=== PATIENT | female | born 1980 | race Two or more races ===

== ENCOUNTER 2016-09-08 10:38 | Inpatient (IN) | payer MEDICAID ==
[~2016-09-08] VITALS: Ht 162.6 cm; Wt 117.9 kg
[2016-09-08 11:10] LABS: BASOPHILS % (AUTO) 0.2 % (0.0-2.0); EOSINOPHILS % (AUTO) 0.1 % (0.0-6.0); HEMATOCRIT 38 % (33-45); HEMOGLOBIN 12.4 g/dL (11.5-14.8); LYMPHOCYTES # (AUTO) 0.7 /CMM (0.8-4.8); LYMPHOCYTES % (AUTO) 13.3 % (20.0-44.0); MEAN CORPUSCULAR HEMOGLOBIN 27 PG (26.0-33.0); MEAN CORPUSCULAR HGB CONC 32 g/dl (31.0-36.0); MEAN CORPUSCULAR VOLUME 83 fL (82-100); MONOCYTES # (AUTO) 0.2 /CMM (0.1-1.30); MONOCYTES % (AUTO) 3.5 % (2.0-12.0); NEUTROPHILS # (AUTO) 4.3 /CMM (1.8-8.9); NEUTROPHILS % (AUTO) 82.9 % (43.0-81.0); PLATELET COUNT (AUTO) 311 /CMM (150-450); RDW COEFFICIENT OF VARIATION 15.7 (11.5-15.0); RED BLOOD CELL COUNT(AUTO) 4.62 MIL/uL (4.0-5.2); WHITE BLOOD COUNT (AUTO) 5.3 K/uL (4.3-11.0)
[2016-09-08 11:21] LABS: CALCIUM, SERUM 8.6 mg/dL (8.5-10.1); CREATININE 3.1 mg/dL (0.6-1.3); POTASSIUM 3.2 mmol/L (3.5-5.1)
[2016-09-08] MEDS ORDERED: IV NS 0.9% 1,000 ML ONE (11:22)
[2016-09-08] MEDS ORDERED: IV SET PRIMARY 1 EA INFUS.SET MC ONE (11:22)
[2016-09-08 11:23] LABS: INR 1.11 (0.87-1.13); PROTHROMBIN TIME 11.6 SECS (9.5-12.7)
[2016-09-08 11:26] LABS: ALBUMIN 4.5 g/dL (3.4-5.0); BILIRUBIN,TOTAL 0.2 mg/dL (0.2-1.0); TOTAL PROTEIN, SERUM 8.3 g/dL (6.4-8.2)
[2016-09-08] MEDS ORDERED: IV NS 0.9% 1,000 ML BAG IV ONE (11:30)
[2016-09-08] MEDS ORDERED: CHLORDIAZEPOXIDE HCL 25 MG CAPSULE PO ONE (11:30)
--- NOTE | 2016-09-08 11:30 | NUR ---
Pt BIB [facility] C/O mid-epigastric abd pain with N/V today. Pt also states she is going through "alcohol withdrawal". Pt appears sleepy but easily arousable. A/Ox1. Resp even unlabored. Skin warm nondiaphoretic. No neuro deficits noted. No tremor or sz activity noted. In ER bed 09 on monitor.
[2016-09-08 11:57] LABS: ALCOHOL, BLOOD < 3 mg/dL (0-0)
[2016-09-08 12:00] LABS: THYROID STIMULATING HORMONE 0.861 uIU/mL (0.358-3.74)
[2016-09-08 12:05] LABS: LACTIC ACID 1.6 mmol/L (0.4-2.0)
--- NOTE | 2016-09-08 12:13 | NUR ---
pt transported to CT in stable condition
[2016-09-08] MEDS ORDERED: LORAZEPAM INJ 2 MG/ML VIAL ONE (12:56)
[2016-09-08] MEDS ORDERED: LORAZEPAM INJ 2 MG/ML VIAL IV ONE (13:00)
--- NOTE | 2016-09-08 13:01 | NUR ---
PAGED DR TURNER
[2016-09-08] MEDS ORDERED: TEMA30CA PO (13:08)
[2016-09-08] MEDS ORDERED: LORA1TAB82 PO (13:08)
[2016-09-08] MEDS ORDERED: LITH300T3 PO (13:08)
[2016-09-08] MEDS ORDERED: LITH600C PO (13:08)
[2016-09-08] MEDS ORDERED: ONDANSETRON HCL/PF 4 MG/2 ML VIAL ONE (13:28)
[2016-09-08] MEDS ORDERED: POTASSIUM CHLORIDE 20 MEQ TAB.PRT.SR PO ONE ×2 (13:28→13:30)
--- NOTE | 2016-09-08 13:32 | NUR ---
REPAGED DR JOHNNY SANTANA
--- NOTE | 2016-09-08 13:33 | NUR ---
PATIENT ASSIGNED TO TELE 312-2 DX ACUTE RENAL FAILURE.
[2016-09-08] MEDS ORDERED: CHLORDIAZEPOXIDE HCL 25 MG CAPSULE ONE (13:46)
[2016-09-08] MEDS ORDERED: CHLORDIAZEPOXIDE HCL 25 MG CAPSULE PO STA (13:47)
[2016-09-08] MEDS ORDERED: ONDANSETRON HCL/PF 4 MG/2 ML VIAL IV STA (13:47)
--- NOTE | 2016-09-08 14:14 | NUR ---
report given to Salina RN for admission
[2016-09-08 14:27] LABS: APPEARANCE,URINE Slightly Cloudy (CLEAR); BILIRUBIN,URINE Negative (NEGATIVE); BLOOD, URINE Trace-intact Ery/uL (NEGATIVE); COLOR,URINE Yellow (YELLOW); KETONES,URINE 15 (NEGATIVE); LEUKOCYTE ESTERASE ,URINE Negative (NEGATIVE); NITRITE, URINE Negative (NEGATIVE); PROTEIN,URINE 100 mg/dl (NEGATIVE); UGLUCOSE Negative (NEGATIVE); UROBILINOGEN,URINE 0.2 EU/dL (0.2)
[2016-09-08 14:29] LABS: PREGNANCY TEST URINE QUAL NEGATIVE (NEGATIVE)
[2016-09-08 14:38] LABS: ADD URINE CULTURE NO; BACTERIA,URINE None seen /HPF (None Seen); CANNABINOID, URINE NEGATIVE (NEGATIVE); PHENCYCLIDINE SCREEN,URINE NEGATIVE (NEGATIVE); RBC,URINE 0-2 /HPF (0-2); SQUAMOUS EPITHELIAL CELL,UR Few /HPF (None Seen); WBC,URINE 0-2 /HPF (0-3)
--- NOTE | 2016-09-08 14:50 | NUR ---
PT TRANSPORTED TO [facility] IN STABLE CONDITION VIA ACLS PROTOCOL. NAD NOTED. PT MUCH MORE ALERT, EASILY AROUSABLE, MORE ORIENTED THAN ON INITIAL PRESENTATION. A/OX4 NOW.
--- NOTE | 2016-09-08 15:10 | NUR ---
ms rn received a new admission from er, 36 year old female, came in w/ alcohol intoxication/arf, awake,alert,oriented x3,not in any form of distress, respiration even and unlabored,no sob noted, lungs are clear,abdomen soft,positive bowel sounds,denies pain at this time. all needs attended.
--- NOTE | 2016-09-08 16:00 | NUR ---
ms rn called dr. rodas for orders w/ orders made and carried out.
[2016-09-08] MEDS ORDERED: IV NS 0.9% 1,000 ML IV PRN (17:30)
[2016-09-08] MEDS ORDERED: ACETAMINOPHEN 325 MG TABLET PO PRN (17:30)
[2016-09-08] MEDS ORDERED: HYDROCODONE/APAP 5/325MG 1 EACH TABLET PO PRN (17:30)
[2016-09-08] MEDS ORDERED: LORAZEPAM 1 MG TABLET PO SCH (17:30)
[2016-09-08] MEDS ORDERED: IV SET PRIMARY PUMP SET 1 EA INFUS.SET MC ONE (18:33)
--- NOTE | 2016-09-08 19:01 | NUR ---
ms rn on bed, no distress noted.
[2016-09-08] MEDS: LORAZEPAM 1 MG TABLET PO PRN (19:31)
--- NOTE | 2016-09-08 19:35 | NUR ---
RN NOTES COMPLAINED OF FEELING ANXIOUS FROM ALCOHOL WITHDRAWAL- ATIVAN 1MG PO GIVEN ORDERED, V/S STABLE
[2016-09-08 20:00] VITALS: BP 137/65
--- NOTE | 2016-09-08 20:48 | NUR ---
RN NOTES SPOKE TO DR. TURNER AND AND GOT AN ORDER OF [id number] PO PRN AND IMODIUM 2MG PO PRN FOR DIARRHEA, ORDER NOTED AND CARRIED OUT
[2016-09-08] MEDS ORDERED: LOPERAMIDE HCL (2 MG CAP) 2 MG CAPSULE PO PRN (21:00)
[2016-09-08] MEDS: TEMAZEPAM 15 MG CAPSULE PO PRN (21:29)
--- NOTE | 2016-09-08 21:30 | NUR ---
RN NOTES COMPLAINED OF HAVING DIARRHEA- IMODIUM 2MG PO GIVEN ORDERED, ASKED FOR SLEEPING PILL- REESTORIL 30MG PO GIVEN ORDERED, V/S STABLE
[2016-09-09 06:12] LABS: BASOPHILS % (AUTO) 0.8 % (0.0-2.0); HEMATOCRIT 33 % (33-45); HEMOGLOBIN 10.9 g/dL (11.5-14.8); LYMPHOCYTES # (AUTO) 2.4 /CMM (0.8-4.8); MEAN CORPUSCULAR HEMOGLOBIN 28 PG (26.0-33.0); MEAN CORPUSCULAR HGB CONC 33 g/dl (31.0-36.0); MEAN CORPUSCULAR VOLUME 83 fL (82-100); MONOCYTES # (AUTO) 0.3 /CMM (0.1-1.30); MONOCYTES % (AUTO) 6.7 % (2.0-12.0); NEUTROPHILS % (AUTO) 42.5 % (43.0-81.0); PLATELET COUNT (AUTO) 266 /CMM (150-450); RDW COEFFICIENT OF VARIATION 16.2 (11.5-15.0); RED BLOOD CELL COUNT(AUTO) 3.97 MIL/uL (4.0-5.2); WHITE BLOOD COUNT (AUTO) 4.8 K/uL (4.3-11.0)
--- NOTE | 2016-09-09 06:26 | NUR ---
RN NOTES COMPLAINED OF ABDOMINAL PAIN- NORCO 5/325 MG PO GIVEN ORDERED, V/S STABLE
--- NOTE | 2016-09-09 07:03 | NUR ---
RN NOTES MORNING CARE RENDERED, PT. NEEDS ATTENDED
[2016-09-09 07:09] LABS: ALBUMIN 3.7 g/dL (3.4-5.0); BILIRUBIN,TOTAL 0.2 mg/dL (0.2-1.0); CREATININE 2.5 mg/dL (0.6-1.3); MAGNESIUM 1.7 mg/dL (1.8-2.4); POTASSIUM 3.3 mmol/L (3.5-5.1)
--- NOTE | 2016-09-09 07:30 | NUR ---
RN OPEN NOTES RECEIVED REPORT FROM TRIMMER HAND NURSE. PATIENT IS IN BED, ALERT AND ORIENTED TO NAME, PLACE AND TIME. NO SIGNS OR SYMPTOMS OF DISTRESS. PATIENT COMPLAIN ON PAIN AT THE ABDOMEN RUQ. PER TRIMMER HAND NURSE, NORCO WAS ADMINISTERED. IV SITE IS POTENT AND INTACT. IV FLUIDS ARE CURRENTLY RUNNING AT 100 ML/HR. BED IS IN LOW POSITION, LOCKED AND TWO SIDE RAILS ARE UP. WILL CONTINUE TO MONITOR, ASSESS AND EDUCATE PATIENT THROUGHOUT MY SHIFT.
[2016-09-09] MEDS: LORAZEPAM 1 MG TABLET PO PRN (07:59)
[2016-09-09 08:00] VITALS: BP 123/76
--- NOTE | 2016-09-09 08:10 | NUR ---
RN NOTES / LITHIUM PAGES DR. TURNER REGARDING PATIENT SIGNS AND SYMPTOMS. PATIENT COMPLAINS OF VOMITING, DIARRHEA AND BLURRED VISION IN WHICH COULD BE A POSSIBLE SIDE EFFECTS OF HER HOME MEDS LITHIUM. PER DOCTOR ORDER, I HELD THE MORNING DOSE OF LITHIUM AND LITHIUM BLOOD TEST ORDERED. DUE TO RUQ PAIN. DR TURNER REQUESTED CT OF THE ABDOMEN AND PELVIS. ORDERS CARRIED OUT. CHARGE NURSE MADE AWARE.
[2016-09-09] MEDS: LITHIUM CARBONATE (300 MG CAP) 300 MG CAPSULE PO SCH (08:18)
[2016-09-09] MEDS ORDERED: MULTIVITAMINS,THERAPEUTIC 1 UDTAB TABLET PO SCH (09:00)
[2016-09-09] MEDS ORDERED: THIAMINE HCL 100 MG TABLET PO SCH (09:00)
[2016-09-09] MEDS ORDERED: POTASSIUM CHLORIDE 20 MEQ TAB.PRT.SR PO ONE (09:00)
[2016-09-09] MEDS ORDERED: PANTOPRAZOLE 40 MG VIAL IV SCH (09:00)
[2016-09-09] MEDS ORDERED: FOLIC ACID 1 MG TABLET PO SCH (09:00)
[2016-09-09] MEDS ORDERED: METHOTREXATE SODIUM (2.5MG) 2.5 MG TABLET PO SCH (09:00)
[2016-09-09] MEDS ORDERED: PANTOPRAZOLE 40 MG TABLET.DR PO SCH (09:00)
[2016-09-09] MEDS ORDERED: SECONDARY IV SET 1 EA INFUS.SET MC ONE (09:27)
[2016-09-09] MEDS ORDERED: SET RED CAP 1 EA INFUS.SET MC ONE (09:27)
[2016-09-09] MEDS ORDERED: IV SET PRIMARY PUMP SET 1 EA INFUS.SET MC ONE ×2 (09:27→09:38)
[2016-09-09] MEDS: Potassium Chloride 20 MEQ in IV D5/ 0.9% NACL 1,000 ML IV PRN ×2 (09:33→23:00)
[2016-09-09] MEDS: Magnesium 1GM/D5W 100ML PREMIX 100 ML IV SCH ×2 (09:33→11:21)
[2016-09-09] MEDS ORDERED: IV NS 0.9% 250 ML IV ONE (09:40)
--- NOTE | 2016-09-09 12:14 | NUR ---
Social service consult requested by [facility] Estrella for possible alcohol abuse. Per H&P report by Dr. Montoya, pt. was brought in via ambulance to the ED with chief complaint of vomiting, mild diffuse abdominal pain and feeling like she is going through alcohol withdrawal. Pt states she is a heavy drinker but history from her is limited as she is unable to provide further history secondary to intoxication versus confusion. Pt. was admitted to [facility] for abdominal pain. SW met with pt. bedside. Pt. is A&O x 2. Pt. appears guarded, is slow to answers questions and has an odd effect. Pt. is . Pt. has a history of Anxiety and Bipolar. Pt. was hospitalized in June 2016 at [facility]. Pt. denies SI/HI at this time. Pt. is currently taking Mettler and Ativan twice a day. Pt. denies drug and alcohol use, although her H&P reports that she has a long history of alcohol use and was intoxicated at time of admission. Pt. informed SW her last drink was approximately a month ago. Pt. denies using drugs, marijuana and cigarettes. Pt. declined to see a psychiatrist and insists on seeing a doctor for her abdominal pain. Pt. informed SW her RN Sherin is aware of pt's abdominal pain. Pt. requesting no other social service needs at this time and social director will re-assess if necessary.
--- NOTE | 2016-09-09 12:30 | NUR ---
RN NOTES TAP WATER ENEMA X2 ADMINISTERED. PATIENT TOLERATED THE PROCEDURE WELL.
--- NOTE | 2016-09-09 13:10 | NUR ---
RN NOTES PATIENT IS OFF THE FLOOR FOR EGD.
--- NOTE | 2016-09-09 14:15 | NUR ---
RN NOTES PATIENT CAME BACK FROM PROCEDURE. VITAL SIGNS: BLOOD PRESSURE 129/70. HR 88. O2 RA 97%. IV FLUID RESUME AT 100 ML / HR. NEW ORDERS REVIEWED. WILL CONTINUE TO MONITOR AND ASSESS PATIENT
[2016-09-09] MEDS: METOCLOPRAMIDE HCL 10 MG/2 ML VIAL IV SCH ×2 (14:22→20:32)
--- NOTE | 2016-09-09 15:35 | NUR ---
RN NOTES SPOKE WITH DR TURNER. NEW ORDERS RECEIVED AND CARRIED OUT.
--- NOTE | 2016-09-09 15:36 | NUR ---
RN NOTES MRSA LAB CALLED. MRSA NAMES POSITIVE. ISOLATION PRECAUTION INITIATED
--- NOTE | 2016-09-09 15:48 | NUR ---
RN NOTES DC'S POSSIBLE DC'S 09/10/[address] TURNER
[2016-09-09 16:00] VITALS: BP 126/69
[2016-09-09] MEDS ORDERED: HYDROCODONE/APAP 5/325MG 1 EACH TABLET PO PRN (16:00)
[2016-09-09] MEDS ORDERED: ONDANSETRON HCL/PF 4 MG/2 ML VIAL IV PRN (16:00)
[2016-09-09] MEDS: HYDROMORPHONE 1 MG/1 ML DISP.SYRIN IV PRN ×3 (16:51→23:27)
[2016-09-09] MEDS: PANTOPRAZOLE 40 MG VIAL IV SCH (16:51)
[2016-09-09] MEDS ORDERED: LITHIUM CARBONATE (300 MG CAP) 300 MG CAPSULE PO SCH (18:00)
--- NOTE | 2016-09-09 18:41 | NUR ---
RN CLOSING NOTES PATIENT IS AWAKE AND ORIENTED TO NAME, TIME AND PLACE. IV SITE IS POTENT AND INTACT, FLUID AT 100ML/HR IS CURRENTLY RUNNING. NO SIGNS OR SYMPTOMS OF DISTRESS. PATIENT DENIED PAIN AT THE MOMENT, PATIENT HAS DILAUDID 1MG Q3H FOR PAIN PRN. VITAL SIGNS ARE STABLE. BED IS IN LOW POSITION, LOCKED AND TWO SIDE RAILS ARE UP. PER DR. TURNER, PATIENT IS A POSSIBLE DC'S ON 09/10/2016 AM. WILL ENDORSE TO [facility] SHIFT NURSE.
--- NOTE | 2016-09-09 19:30 | NUR ---
RN NOTES RECEIVED PT SLEEPING BUT AROUSABLE, IV FLUID RUNNING @ 100ML/HR, NO PAIN NOTED, NO SOB, CALL LIGHT WITHIN REACH, SIDERAILS UPX2 CONTINUE TO MONITOR
[2016-09-09 20:00] VITALS: BP 111/81
--- NOTE | 2016-09-09 20:36 | NUR ---
RN NOTES COMPLAINED OF ABDOMINAL PAIN- DILAUDID 1MG IV GIVEN ORDERED, V/S STABLE
[2016-09-09 20:51] VITALS: BP 111/81
--- NOTE | 2016-09-09 23:29 | NUR ---
RN NOTES COMPLAINED OF ABDOMINAL PAIN- DILAUDID 1M,G IV GIVEN ORDERED, V/S STABLE
[2016-09-10] MEDS: TEMAZEPAM 15 MG CAPSULE PO PRN (00:58)
[2016-09-10] MEDS: METOCLOPRAMIDE HCL 10 MG/2 ML VIAL IV SCH ×2 (02:24→08:16)
[2016-09-10] MEDS: HYDROMORPHONE 1 MG/1 ML DISP.SYRIN IV PRN ×2 (05:27→09:18)
--- NOTE | 2016-09-10 05:27 | NUR ---
RN NOTES COMPLAINED OF ABDOMINAL PAIN- DILAUDID 1MG IV GIVEN ORDERED, V/S STABLE
--- NOTE | 2016-09-10 06:25 | NUR ---
RN NOTES AWAEK IV LINE PATENT NO REDNESS OR SWOLLEN, MORNING CARE RENDERED, PT. NEEDS ATTENDED
[2016-09-10 06:26] LABS: BASOPHILS % (AUTO) 0.5 % (0.0-2.0); EOSINOPHILS % (AUTO) 0.9 % (0.0-6.0); HEMATOCRIT 35 % (33-45); HEMOGLOBIN 11.5 g/dL (11.5-14.8); LYMPHOCYTES # (AUTO) 1.8 /CMM (0.8-4.8); LYMPHOCYTES % (AUTO) 42.4 % (20.0-44.0); MEAN CORPUSCULAR HEMOGLOBIN 28 PG (26.0-33.0); MEAN CORPUSCULAR HGB CONC 33 g/dl (31.0-36.0); MEAN CORPUSCULAR VOLUME 83 fL (82-100); MONOCYTES # (AUTO) 0.3 /CMM (0.1-1.30); MONOCYTES % (AUTO) 7.9 % (2.0-12.0); NEUTROPHILS % (AUTO) 48.3 % (43.0-81.0); PLATELET COUNT (AUTO) 244 /CMM (150-450); WHITE BLOOD COUNT (AUTO) 4.2 K/uL (4.3-11.0)
[2016-09-10 07:35] LABS: ALBUMIN 3.8 g/dL (3.4-5.0); BILIRUBIN,TOTAL 0.2 mg/dL (0.2-1.0); CALCIUM, SERUM 8.6 mg/dL (8.5-10.1); CREATININE 1.7 mg/dL (0.6-1.3); TOTAL PROTEIN, SERUM 7.3 g/dL (6.4-8.2)
--- NOTE | 2016-09-10 07:40 | NUR ---
RN MS NOTES PATIENT IN BED, ALERT AND ORIENTED, NO S/SX OF DISTRESS NOTED, DENIES PAIN OR DISCOMFORT, NEEDS ATTENDED AND MET, CALL LIGHT WITHIN REACH, WILL CONTINUE TO MONITOR.
[2016-09-10 08:00] VITALS: BP 127/74
[2016-09-10] MEDS: LITHIUM CARBONATE (300 MG CAP) 300 MG CAPSULE PO SCH (08:16)
[2016-09-10] MEDS: PANTOPRAZOLE 40 MG VIAL IV SCH (08:16)
[2016-09-10] MEDS ORDERED: MUPIROCIN OINT 2% 22 GM TUBE SCH (09:00)
[2016-09-10] MEDS ORDERED: PANT40TA2 PO ×2 (09:40→10:00)
--- NOTE | 2016-09-10 09:51 | NUR ---
RN MS NOTES PATIENT SEEN BY DR. TURNER AND RECEIVED NEW ORDER FOR DISCHARGE. PATIENT AWARE.
--- NOTE | 2016-09-10 10:35 | NUR ---
RN MS NOTES PATIENT ALERT AND ORIENTED, NO DISTRESS NOTED, ABLE TO TOLERATE ABDOMINAL PAIN AT THIS TIME, RECEIVED DISCHARGE INSTRUCTIONS AND VERBALIZED UNDERSTANDING, SKIN CONDITION INTACT, PRESCRIPTION GIVEN WITH INSTRUCTIONS, BELONGINGS RECONCILIATION SIGNED, PATIENT IN STABLE CONDITION, LEFT AT 1035 VIA TAXI.
== END 2016-09-10 10:45 | disposition home or self-care (01) | DRG 241 ==
LOC: ER 10:40 → TELE 13:44 → MED 18:22
PROVIDERS: ADMIT Internal Medicine; ATTEND Internal Medicine
DX: K29.70 Gastritis, unspecified, without bleeding (principal); N17.9 Acute kidney failure, unspecified; N18.3 Chronic kidney disease, stage 3 (moderate); I12.9 Hypertensive chronic kidney disease with stage 1 through stage 4 chronic kidney disease, or unspecified chronic kidney disease; K22.10 Ulcer of esophagus without bleeding; E66.01 Morbid (severe) obesity due to excess calories; F10.239 Alcohol dependence with withdrawal, unspecified; E87.6 Hypokalemia; K44.9 Diaphragmatic hernia without obstruction or gangrene; F31.9 Bipolar disorder, unspecified; K64.8 Other hemorrhoids; Z90.49 Acquired absence of other specified parts of digestive tract; K21.0 Gastro-esophageal reflux disease with esophagitis; Z68.41 Body mass index [BMI] 40.0-44.9, adult
CPT/HCPCS: 36415; 70450-TC; 71010-TC; 80053-TC; 80305; 81000-TC; 83605-TC; 83690-TC; 83735-TC; 84443-TC; 84703-TC; 85025-TC; 85610-TC; 87040-TC; 87081-TC; 88305-TC; 88313-TC; 88342; A4606; C9113; G0480; G6039-TC; J1170; J2060; J2405; J2765; J3475; J3480; J7030; J7042; J7050; J8610; Z7610

== ENCOUNTER 2016-09-11 13:50 | Emergency (ER) | payer MEDICAID ==
[~2016-09-11] VITALS: Ht 162.6 cm; Wt 122.5 kg
[~2016-09-11 13:50] MED LIST: LITH300T3 PO; LITH600C PO; LORA1TAB82 PO; PANT40TA2 PO; TEMA30CA PO
--- NOTE | 2016-09-11 13:57 | NUR ---
PT BBRA [id number] FROM HOME CC OF RUQ ABD PAIN SINCE TODAY. PER RA PT . "FEEL ASLEEP AND HAS NOT RESPONDED DURING THE RIDE." BS 97. PLACED ON MONITOR VSS. AWAITING MD ORDER. PLACED ON SAFETY PRECAUTION. MADE PT COMFORTABLE.
[2016-09-11] MEDS ORDERED: AMMONIA NASAL INHALATION 1 EA PACK NAS ONE (14:01)
--- NOTE | 2016-09-11 14:05 | NUR ---
IV ACCESS [facility] #20 BLOOD SAMPLE COLLECTED SENT TO LAB.
[2016-09-11] MEDS ORDERED: IV SET PRIMARY PUMP SET 1 EA INFUS.SET MC ONE (14:08)
[2016-09-11] MEDS ORDERED: IV NS 0.9% 500 ML IV ONE (14:08)
[2016-09-11 14:15] LABS: BASOPHILS % (AUTO) 0.6 % (0.0-2.0); EOSINOPHILS # (AUTO) 0.1 /CMM (0.0-0.7); EOSINOPHILS % (AUTO) 1.1 % (0.0-6.0); HEMATOCRIT 37 % (33-45); HEMOGLOBIN 11.9 g/dL (11.5-14.8); LYMPHOCYTES # (AUTO) 2.2 /CMM (0.8-4.8); LYMPHOCYTES % (AUTO) 36.4 % (20.0-44.0); MEAN CORPUSCULAR HEMOGLOBIN 27 PG (26.0-33.0); MEAN CORPUSCULAR HGB CONC 32 g/dl (31.0-36.0); MEAN CORPUSCULAR VOLUME 83 fL (82-100); MONOCYTES # (AUTO) 0.5 /CMM (0.1-1.30); MONOCYTES % (AUTO) 8.5 % (2.0-12.0); NEUTROPHILS # (AUTO) 3.2 /CMM (1.8-8.9); NEUTROPHILS % (AUTO) 53.4 % (43.0-81.0); PLATELET COUNT (AUTO) 251 /CMM (150-450); RDW COEFFICIENT OF VARIATION 15.8 (11.5-15.0); RED BLOOD CELL COUNT(AUTO) 4.41 MIL/uL (4.0-5.2)
--- NOTE | 2016-09-11 14:21 | NUR ---
ct at bedside
[2016-09-11] MEDS ORDERED: IV NS 0.9% 500 ML BAG IV ONE (14:30)
--- NOTE | 2016-09-11 14:30 | NUR ---
PT AWAKE NOW. PT AMBULATORY TO BATHROOM. COLLECTED URINE SAMPLE SENT TO LAB.
[2016-09-11 14:35] LABS: ALANINE AMINOTRANSFERASE 18 U/L (12-78); ALBUMIN 4.2 g/dL (3.4-5.0); ALKALINE PHOSPHATASE 65 U/L (46-116); ASPARTATE AMINOTRANSFERASE 12 U/L (15-37); BILIRUBIN,TOTAL 0.2 mg/dL (0.2-1.0); SALICYLATE 1.3 mg/dL (2.8-20.0); TOTAL PROTEIN, SERUM 7.9 g/dL (6.4-8.2); TROPONIN I < 0.017 ng/mL (0.00-0.056)
[2016-09-11 14:37] LABS: APPEARANCE,URINE Clear (CLEAR); BILIRUBIN,URINE Negative (NEGATIVE); BLOOD, URINE Trace-intact Ery/uL (NEGATIVE); COLOR,URINE Yellow (YELLOW); KETONES,URINE Negative (NEGATIVE); LEUKOCYTE ESTERASE ,URINE Negative (NEGATIVE); NITRITE, URINE Negative (NEGATIVE); PROTEIN,URINE Negative (NEGATIVE); UGLUCOSE Negative (NEGATIVE); UROBILINOGEN,URINE 0.2 EU/dL (0.2)
[2016-09-11 14:38] LABS: ACETAMINOPHEN 0 ug/ml (10-30)
[2016-09-11 14:41] LABS: PREGNANCY TEST URINE QUAL NEGATIVE (NEGATIVE)
[2016-09-11 14:43] LABS: SERUM AMMONIA 34 umol/L (11-32)
[2016-09-11 14:47] LABS: INR 1.03 (0.87-1.13)
[2016-09-11 15:04] LABS: CANNABINOID, URINE NEGATIVE (NEGATIVE); PHENCYCLIDINE SCREEN,URINE NEGATIVE (NEGATIVE)
[2016-09-11 15:16] LABS: ALCOHOL, BLOOD 292 mg/dL (0-0)
[2016-09-11 15:27] LABS: ADD URINE CULTURE NO; BACTERIA,URINE Rare /HPF (None Seen); RBC,URINE 0-2 /HPF (0-2); SQUAMOUS EPITHELIAL CELL,UR Rare /HPF (None Seen); WBC,URINE 0-2 /HPF (0-3)
--- NOTE | 2016-09-11 15:30 | NUR ---
Patient is resting comfortably in bed. VSS.
[2016-09-11 16:18] LABS: CALCIUM, SERUM 9.4 mg/dL (8.5-10.1); CREATININE 1.2 mg/dL (0.6-1.3); POTASSIUM 3.4 mmol/L (3.5-5.1)
[2016-09-11] MEDS ORDERED: IV NS 0.9% 1,000 ML IV ONE (16:25)
[2016-09-11] MEDS ORDERED: IV NS 0.9% 1,000 ML ONE (16:26)
[2016-09-11] MEDS ORDERED: ACETAMINOPHEN ES 500 MG TABLET ONE (16:42)
[2016-09-11] MEDS ORDERED: METOCLOPRAMIDE HCL 10 MG/2 ML VIAL ONE (16:43)
[2016-09-11] MEDS ORDERED: METOCLOPRAMIDE HCL 10 MG/2 ML VIAL IV ONE (17:00)
[2016-09-11] MEDS ORDERED: ACETAMINOPHEN ES 500 MG TABLET PO ONE (17:00)
--- NOTE | 2016-09-11 17:40 | NUR ---
Pt ambulatory with a steady gait.
--- NOTE | 2016-09-11 17:51 | NUR ---
Patient discharged to home in stable condition. Written and verbal after care instructions given. Patient verbalizes understanding of instruction. IV removed. Catheter intact and site benign. Pressure and 4x4 applied to site. No bleeding noted.
[2016-09-11 17:52] VITALS: BP 128/77
== END 2016-09-11 17:53 | disposition home or self-care (01) ==
LOC: ER 13:52
DX: R10.11 Right upper quadrant pain (principal); R41.82 Altered mental status, unspecified; F10.129 Alcohol abuse with intoxication, unspecified; F31.9 Bipolar disorder, unspecified; F41.9 Anxiety disorder, unspecified
CPT/HCPCS: 36415; 70450; 71010; 80048; 80076; 80305; 80329; 81001; 82140; 84484; 84703; 85025; 85730; 93005; 96361; 96374; 99285; A4606; G0480 ×2; J2765; J7030; J7040; Z7610; 81000-TC; G6039-TC

== ENCOUNTER 2016-12-13 15:41 | Inpatient (IN) | payer MEDICAID, OTHER ==
[~2016-12-13] VITALS: Ht 167.6 cm; Wt 130.6 kg
[2016-12-13] MEDS ORDERED: IV NS 0.9% 1,000 ML ONE (16:14)
[2016-12-13] MEDS ORDERED: IV SET PRIMARY 1 EA INFUS.SET MC ONE (16:14)
[2016-12-13] MEDS ORDERED: IV NS 0.9% 1,000 ML BAG IV ONE (16:30)
[2016-12-13 16:32] LABS: BASOPHILS % (AUTO) 0.5 % (0.0-2.0); EOSINOPHILS % (AUTO) 0.7 % (0.0-6.0); HEMATOCRIT 35 % (33-45); HEMOGLOBIN 11.6 g/dL (11.5-14.8); LYMPHOCYTES # (AUTO) 2.2 /CMM (0.8-4.8); LYMPHOCYTES % (AUTO) 36.3 % (20.0-44.0); MEAN CORPUSCULAR HEMOGLOBIN 26 PG (26.0-33.0); MEAN CORPUSCULAR HGB CONC 33 g/dl (31.0-36.0); MEAN CORPUSCULAR VOLUME 81 fL (82-100); MONOCYTES # (AUTO) 0.8 /CMM (0.1-1.30); MONOCYTES % (AUTO) 13.1 % (2.0-12.0); NEUTROPHILS % (AUTO) 49.4 % (43.0-81.0); PLATELET COUNT (AUTO) 193 /CMM (150-450); RDW COEFFICIENT OF VARIATION 15.6 (11.5-15.0); RED BLOOD CELL COUNT(AUTO) 4.39 MIL/uL (4.0-5.2)
[2016-12-13 16:44] LABS: CARBON DIOXIDE 26 mmol/L (21-32); CHLORIDE 106 mmol/L (98-107); CREATININE 1.4 mg/dL (0.6-1.3); GLUCOSE 95 mg/dL (74-106); POTASSIUM 3.9 mmol/L (3.5-5.1); SODIUM SERUM 141 mmol/L (136-145); UREA NITROGEN, BLOOD 14 mg/dL (7-18)
[2016-12-13 16:50] LABS: ALANINE AMINOTRANSFERASE 21 U/L (12-78); ALBUMIN 3.7 g/dL (3.4-5.0); ALCOHOL, BLOOD < 3 mg/dL (0-0); ASPARTATE AMINOTRANSFERASE 10 U/L (15-37); BILIRUBIN,DIRECT 0.1 mg/dL (0.0-0.2); BILIRUBIN,TOTAL 0.2 mg/dL (0.2-1.0); TOTAL PROTEIN, SERUM 7.4 g/dL (6.4-8.2)
[2016-12-13 16:54] LABS: INR 1.06 (0.87-1.13); PROTHROMBIN TIME 11.4 SECS (9.5-12.7)
[2016-12-13 16:56] LABS: APPEARANCE,URINE SL CLOUDY (CLEAR); BILIRUBIN,URINE NEGATIVE (NEGATIVE); BLOOD, URINE NEGATIVE Ery/uL (NEGATIVE); COLOR,URINE YELLOW (YELLOW); KETONES,URINE NEGATIVE (NEGATIVE); LEUKOCYTE ESTERASE ,URINE NEGATIVE (NEGATIVE); NITRITE, URINE NEGATIVE (NEGATIVE); PROTEIN,URINE NEGATIVE (NEGATIVE); UGLUCOSE NEGATIVE (NEGATIVE); UROBILINOGEN,URINE 0.2 EU/dL (0.2)
[2016-12-13 17:04] LABS: ALKALINE PHOSPHATASE 79 U/L (46-116)
[2016-12-13 17:06] LABS: ACETAMINOPHEN 0 ug/ml (10-30); SALICYLATE 1.7 mg/dL (2.8-20.0)
[2016-12-13] MEDS ORDERED: DOXY100C2 PO (17:57)
[2016-12-13] MEDS ORDERED: PANT40TA2 PO (17:57)
[2016-12-13] MEDS ORDERED: CLID1CAP PO (17:57)
[2016-12-13 20:00] VITALS: BP 131/76
[2016-12-13] MEDS ORDERED: ONDANSETRON HCL/PF 4 MG/2 ML VIAL IVP PRN (20:30)
[2016-12-13] MEDS ORDERED: Z GUARD REMEDY 2 OZ OINT TP PRN (20:30)
[2016-12-13 20:38] VITALS: BP 131/76
[2016-12-13] MEDS ORDERED: IV SET PRIMARY PUMP SET 1 EA INFUS.SET MC ONE (21:08)
[2016-12-13] MEDS: IV NS 0.9% 1,000 ML IV PRN (21:41)
[2016-12-13] MEDS: ACETAMINOPHEN 325 MG TABLET PO PRN (21:41)
[2016-12-13] MEDS: LITHIUM CARBONATE (300 MG CAP) 300 MG CAPSULE PO SCH (21:41)
[2016-12-14] VITALS: BP 114/63
[2016-12-14 07:54] LABS: BASOPHILS % (AUTO) 0.8 % (0.0-2.0); EOSINOPHILS % (AUTO) 0.4 % (0.0-6.0); HEMATOCRIT 32 % (33-45); HEMOGLOBIN 10.6 g/dL (11.5-14.8); LYMPHOCYTES % (AUTO) 46.9 % (20.0-44.0); MEAN CORPUSCULAR HEMOGLOBIN 27 PG (26.0-33.0); MEAN CORPUSCULAR HGB CONC 33 g/dl (31.0-36.0); MEAN CORPUSCULAR VOLUME 82 fL (82-100); MONOCYTES # (AUTO) 0.4 /CMM (0.1-1.30); MONOCYTES % (AUTO) 10.2 % (2.0-12.0); NEUTROPHILS # (AUTO) 1.8 /CMM (1.8-8.9); NEUTROPHILS % (AUTO) 41.7 % (43.0-81.0); PLATELET COUNT (AUTO) 167 /CMM (150-450); RED BLOOD CELL COUNT(AUTO) 3.95 MIL/uL (4.0-5.2); WHITE BLOOD COUNT (AUTO) 4.3 K/uL (4.3-11.0)
[2016-12-14 08:00] VITALS: BP 99/57
[2016-12-14 08:03] LABS: THYROID STIMULATING HORMONE 1.508 uIU/mL (0.358-3.74)
[2016-12-14 08:09] LABS: CALCIUM, SERUM 8.2 mg/dL (8.5-10.1); CREATININE 1.6 mg/dL (0.6-1.3); MAGNESIUM 1.7 mg/dL (1.8-2.4); PHOSPHORUS 4.2 mg/dL (2.5-4.9); POTASSIUM 3.7 mmol/L (3.5-5.1)
[2016-12-14 08:26] LABS: BILIRUBIN,TOTAL 0.2 mg/dL (0.2-1.0)
[2016-12-14 08:27] LABS: ALBUMIN 3.1 g/dL (3.4-5.0); TOTAL PROTEIN, SERUM 6.3 g/dL (6.4-8.2)
[2016-12-14] MEDS: LITHIUM CARBONATE 150 MG CAPSULE PO SCH (09:10)
[2016-12-14] MEDS: ACETAMINOPHEN 325 MG TABLET PO PRN ×2 (09:44→21:12)
[2016-12-14] MEDS ORDERED: Magnesium 1GM/D5W 100ML PREMIX 100 ML IV SCH (11:30)
[2016-12-14] MEDS: IV NS 0.9% 1,000 ML IV PRN ×2 (13:19→21:15)
[2016-12-14] MEDS ORDERED: TRAMADOL HCL 50 MG TABLET PO ONE ×2 (15:00→22:30)
[2016-12-14 16:00] VITALS: BP 104/57
[2016-12-14 20:00] VITALS: BP 106/60
[2016-12-14] MEDS: LITHIUM CARBONATE (300 MG CAP) 300 MG CAPSULE PO SCH (22:19)
[2016-12-14] MEDS ORDERED: TRAMADOL HCL 50 MG TABLET ONE (22:25)
[2016-12-15] MEDS: IV NS 0.9% 1,000 ML IV PRN (05:54)
[2016-12-15 08:00] VITALS: BP 127/55
[2016-12-15 08:42] LABS: CALCIUM, SERUM 8.1 mg/dL (8.5-10.1); CREATININE 1.2 mg/dL (0.6-1.3); POTASSIUM 3.9 mmol/L (3.5-5.1)
[2016-12-15] MEDS: LITHIUM CARBONATE 150 MG CAPSULE PO SCH (08:42)
[2016-12-15] MEDS: ACETAMINOPHEN 325 MG TABLET PO PRN (08:43)
[2016-12-15 16:00] VITALS: BP 104/51
== END 2016-12-15 19:00 | disposition home or self-care (01) | DRG 812 ==
LOC: ER 15:46 → TELE 19:48 → MED 12-14 10:14
PROVIDERS: ADMIT Nurse Practitioner Acute Care; ATTEND Nurse Practitioner Acute Care
DX: T42.4X2A Poisoning by benzodiazepines, intentional self-harm, initial encounter (principal); N17.0 Acute kidney failure with tubular necrosis; E43 Unspecified severe protein-calorie malnutrition; E66.01 Morbid (severe) obesity due to excess calories; Z68.42 Body mass index [BMI] 45.0-49.9, adult; D63.8 Anemia in other chronic diseases classified elsewhere; E83.42 Hypomagnesemia; E86.0 Dehydration; F17.210 Nicotine dependence, cigarettes, uncomplicated; F31.9 Bipolar disorder, unspecified; K21.9 Gastro-esophageal reflux disease without esophagitis; Z79.899 Other long term (current) drug therapy; F10.20 Alcohol dependence, uncomplicated; Y92.009 Unspecified place in unspecified non-institutional (private) residence as the place of occurrence of the external cause
CPT/HCPCS: 36415; 80048-TC; 80053-TC; 80061-TC; 80076-TC; 80305; 81000-TC; 83735-TC; 84100-TC; 84443-TC; 84703-TC; 85025-TC; 85730-TC; 87081-TC; 97001-TC; A4606; G0480; J3475; J7030; Z7610